=== PATIENT | female | born 1945 | race African-American/Black ===

== ENCOUNTER 2018-09-23 00:06 | Inpatient (IN) | payer OTHER ==
--- NOTE | 2018-09-23 00:43 | PDOC ---
History of Present Illness - General Chief Complaint: Syncope/Near Syncope Stated Complaint: Syncope/Near Syncope Time Seen by Provider: 09/23/18 00:27 History Source: Patient Exam Limitations: No Limitations - History of Present Illness Initial Comments: 09/23/18 00:42 The patient is a 73F with a PMH of HTN, HLD, diabetes, anemia, hypothyroidism, GERD and breast cancer who presents to the ER after having multiple syncopal episodes. The patient states that she was in her normal state of health walking around her house when she "blacked out". WHen she woke up, she walked over to her bed and laid down. She felt a bump on her head and admits to hitting her head on the ground. She denies any neck pain, CP, SOB, numbness, tingling, weakness, nausea, vomiting, and changes in her vision. She admits to a cough x 3 -4 days with fevers and chills. Past History - Past Medical History Allergies/Adverse Reactions: Allergies Allergy/AdvReac Type Severity Reaction Status Date / Time No Known Allergies Allergy Verified 04/23/18 22:43 Home Medications: Ambulatory Orders Ezetimibe/Simvastatin [Vytorin 10-40 mg Tablet] 1 each PO DAILY 04/23/18 Metoprolol Tartrate [Lopressor -] 25 mg PO DAILY 04/23/18 Olmesartan/Hydrochlorothiazide [Olmesartan-Hctz 40-12.5 mg Tab] 1 each PO DAILY 04/23/18 Omeprazole 20 mg PO DAILY 04/23/18 Anemia: Yes Cancer: Yes (left breast, also + CA polyp on colonoscopy (further rx NI)) COPD: No Diabetes: Yes GI Disorders: Yes (GERD, ULCER) HTN: Yes Hypercholesterolemia: Yes - Surgical History Orthopedic Surgery: Yes (RT SHOLDER REPLACEMENT) - Immunization History Td Vaccination: Yes - Suicide/Smoking/Psychosocial Hx Smoking Status: Yes Smoking History: Former smoker Have you smoked in the past 12 months: No Number of Cigarettes Smoked Daily: 0 Hx Alcohol Use: Yes (occasional) Drug/Substance Use Hx: No Hx Substance Use Treatment: No Review of Systems - Review of Systems Able to Perform ROS?: Yes Comments:: 09/23/18 01:25 GENERAL/CONSTITUTIONAL: No fever or chills. No weakness. HEAD, EYES, EARS, NOSE AND THROAT: No change in vision. No ear pain or discharge. No sore throat. CARDIOVASCULAR: No chest pain, palpitations, or lightheadedness. RESPIRATORY: No cough, wheezing, shortness of breath, or hemoptysis. GASTROINTESTINAL: No nausea, vomiting, diarrhea, constipation, or abdominal pain. GENITOURINARY: No dysuria, frequency, hematuria, or change in urination. MUSCULOSKELETAL: Positive for abrasion on head. No joint or muscle swelling or pain. No neck or back pain. SKIN: No rash or lesions. NEUROLOGIC: Positive for LOC. No headache, numbness, tingling, focal weakness, or change in strength/sensation. Is the patient limited Maori proficient: No *Physical Exam - Physical Exam Comments: 09/23/18 01:26 GENERAL: Well developed, well nourished. Awake and alert. No acute distress. HEENT: Normocephalic, atraumatic. Hearing grossly normal. Moist mucous membranes. PERRLA, EOMI. No conjunctival pallor. Sclera are non-icteric. NECK: Supple. Full ROM. No JVD. CARDIOVASCULAR: Regular rate and rhythm. No murmurs, rubs, or gallops. PULMONARY: No evidence of respiratory distress. Lungs clear to auscultation bilaterally. No wheezing, rales or rhonchi. ABDOMINAL: Soft. Non-tender. Non-distended. No rebound or guarding. GENITOURINARY: No CVA tenderness bilaterally. MUSCULOSKELETAL: Normal range of motion at all joints. No bony deformities or tenderness. EXTREMITIES: No cyanosis. No clubbing. No edema. No calf tenderness or swelling. SKIN: Warm and dry. Normal capillary refill. No rashes. No jaundice. NEUROLOGICAL: Alert, awake, appropriate. Cranial nerves 2-12 grossly intact. Normal speech. PSYCHIATRIC: Cooperative. Good eye contact. Appropriate mood and affect. ED Treatment Course - LABORATORY CBC & Chemistry Diagram: 09/23/18 01:55 09/23/18 01:55 - RADIOLOGY Radiology Studies Ordered: Category Date Time Status HEAD CT WITHOUT CONTRAST [CT] Stat CT Scan 09/23/18 00:28 Ordered CHEST X-RAY PORTABLE* [RAD] Stat Radiology 09/23/18 00:28 Ordered Medical Decision Making - Medical Decision Making 09/23/18 01:26 The patient is a 73F with an extensive PMH who presents to the ER after having multiple syncopal episodes. Per EMS, the patient syncopized twice en route but had no changes on their monitor. She currently denies any symptoms but admits to a headache. Ddx is ACS, PE, arrythmia, dissection. Pt has had hx of syncope with extensive cardiac workup which was all unremarkable. She was supposed to have an outpatient stress test which is unclear if she followed up or not. She states that she was told that she syncopized 2/2 a PNA. With her cough and fever /chills, she may have a PNA underlying. Pending CBC, CMP, and CTH with CXR and UA.\\ 09/23/18 04:19 Abx given for mastoiditis seen on CTH. Ceftriaxone given. Dr. Khalil paged for admission. 09/23/18 04:[address] Khalil for admission. She requests for Dr. Resendiz to be consulted. Order placed. *DC/Admit/Observation/Transfer Diagnosis at time of Disposition: Syncope Qualifiers: Syncope type: unspecified Qualified Code(s): R55 - Syncope and collapse - Discharge Dispostion Condition at time of disposition: Guarded Decision to Admit order: Yes - Referrals Referrals: Ruiz Nelson MD [Primary Care Provider] - - Patient Instructions - Post Discharge Activity
[2018-09-23] MEDS ORDERED: SODIUM CHLORIDE 0.9% 1000 ML INFUS.BAG IV ONE (01:19)
[2018-09-23] MEDS ORDERED: ACETAMINOPHEN 1000 MG/100 ML VIAL (NON FORMULARY) IVPB ONE (01:27)
[2018-09-23] MEDS ORDERED: ACETAMINOPHEN INJECTION 100 ML IVPB ONE (01:42)
[2018-09-23] MEDS ORDERED: CEFTRIAXONE 1,000 MG in DEXTROSE 5%-WATER - 50 ML IVPB ONE (01:49)
[2018-09-23 02:15] LABS: BASO % 0.3 % (0-2.0); EOS % 1.3 % (0-4.5); HEMATOCRIT 33.2 % (32.4-45.2); HEMOGLOBIN 11.3 GM/dL (10.7-15.3); LYMPH % 21.9 % (8-40); MCH 27.6 pg (25.7-33.7); MCHC 34.2 g/dl (32.0-36.0); MEAN CELL VOLUME 80.9 fl (80-96); MEAN PLT VOLUME 7.1 fl (7.5-11.1); MONO % 5.8 % (3.8-10.2); NEUT % 70.7 % (42.8-82.8); PLATELET COUNT 319 K/MM3 (134-434); RBC 4.11 M/mm3 (3.60-5.2); RDW 17.1 % (11.6-15.6); WHITE BLOOD COUNT 4.9 K/mm3 (4.0-10.0)
[2018-09-23 02:28] LABS: INR 1.05 (0.83-1.09); PROTHROMBIN TIME (PATIENT) 12.4 SEC (9.7-13.0)
[2018-09-23] MEDS ORDERED: CEFTRIAXONE 1 GM/50 ML BAG ONE (02:39)
[2018-09-23 02:45] LABS: ALK PHOS 108 U/L (45-117); ANION GAP 12 MMOL/L (8-16); BILIRUBIN,TOTAL 0.2 mg/dL (0.2-1); BLOOD UREA NITROGEN 12 mg/dL (7-18); CALCIUM 9.7 mg/dL (8.5-10.1); CHLORIDE 105 mmol/L (98-107); CO2 25 mmol/L (21-32); CREATININE 1.3 mg/dL (0.55-1.3); GLUCOSE,RANDOM 122 mg/dL (74-106); MAGNESIUM 2.1 mg/dL (1.8-2.4); POTASSIUM 3.9 mmol/L (3.5-5.1); SGOT/AST 42 U/L (15-37); SGPT/ALT 30 U/L (13-61); SODIUM 141 mmol/L (136-145); TOT PROT 7.9 g/dl (6.4-8.2)
--- NOTE | 2018-09-23 03:51 | PDOC ---
Attending Attestation - Resident Resident Name: ZakadalAlvin - ED Attending Attestation I have performed the following: I have examined & evaluated the patient, The case was reviewed & discussed with the resident, I agree w/resident's findings & plan - HPI HPI: 09/23/18 03:45 73-year-old female with history of multiple medical problems including hypertension and diabetes, syncope admission earlier this year presents now with syncopal episode. Patient was in her usual state of normal health, has been seen by a GI (Dr. Ann) recently and started on iron pills for anemia, otherwise without obvious infectious or metabolic complaints, was ambulating in her room and next recalls striking her head on the nightstand and being on the floor. No presyncopal syndrome, no chest pain or palpitations or shortness of breath, no subsequent loss of consciousness or headache/vision change/speech change/focal weakness. Presents for evaluation. Patient had normal echo on prior admission, saw Dr. Resendiz in the office a few weeks ago, but never followed up for her planned stress test. - Physicial Exam PE: 09/23/18 03:47 VSS well appearing, small forehead abrasion/ecchymosis no midline spine ttp, FROM s1s2 rrr, ctab abd soft neuro nl, no edema - Medical Decision Making 09/23/18 03:48 73-year-old female with sudden syncope, history of same. On prior admission patient was diagnosed with pneumonia, here without obvious other complaints. Cardiac versus infectious, low suspicion for seizure. CT head shows no acute traumatic injury bilateral mastoiditis EKG within normal limits Labs are within normal limits including troponin Admit for telemetry Heart Score/ECG Review #1 ECG reviewed & interpreted by me at: 00:34 General ECG Interpretation: Sinus Rhythm, Normal Rate (71), Normal Intervals ( qtc 441), No acute ischemic changes (t-wave flattening laterally I/AVL, V4-6) Compared to previous ECG there are: No significant change (04/23/18)
[2018-09-23 04:32] LABS: URINE APPEARANCE CLEAR; URINE BILIRUBIN NEGATIVE (<2.0 mg/dL); URINE COLOR STRAW; URINE GLUCOSE (UA) NEGATIVE (NEGATIVE); URINE KETONE NEGATIVE (NEGATIVE); URINE LEUK ESTERASE NEGATIVE (NEGATIVE); URINE NITRITE NEGATIVE (NEGATIVE); URINE PROTEIN NEGATIVE (NEGATIVE); URINE UROBILINOGEN NEGATIVE mg/dL (0.2-1.0)
--- NOTE | 2018-09-23 09:37 | CON.CARD ---
Cardiology Consult (text) - Consultation Consultation Note: Cardiology Consult Dictated IMP: Syncope Short WI Hx PSVT REC: Tele Echo Orthostatics Will need EP evaluation.
--- NOTE | 2018-09-23 10:36 | CONS ---
DATE OF CONSULTATION: 09/23/2018 REQUESTING PHYSICIAN: Fransisca Khalil MD REASON FOR CONSULTATION: Syncope. HISTORY OF PRESENT ILLNESS: This patient is a 73-year-old female with past medical history of hypertension, hyperlipidemia, diabetes, chronic hypothyroidism, GERD, and breast cancer, who presented to the ER after an episode of syncope. Patient stated that she was in her usual state of health, walking in her house, when she suddenly lost consciousness for several seconds. She denies antecedent chest pain, shortness of breath, palpitations. She then woke up, walked over to her bed and laid down. She noticed a bump on her head, and at that time, decided to come to the emergency room for further evaluation. She was seen and examined in the ER this morning in no acute distress. She denies dizziness or neurological symptoms. No chest pain or shortness of breath. PAST MEDICAL HISTORY: As above. ALLERGIES: None. MEDICATIONS: Omeprazole 20 mg p.o. daily, olmesartan/hydrochlorothiazide 40/12.5 daily, metoprolol tartrate 25 mg p.o. daily, and ezetimibe/simvastatin 10/40 mg daily. FAMILY HISTORY: Noncontributory. SOCIAL HISTORY: A former smoker. No alcohol or illicit drugs. PHYSICAL EXAMINATION: General: She is alert, oriented, in no distress. Vital signs: Afebrile, temperature 97.9, pulse 70, blood pressure 131/70, O2 saturation is 98 on room air. Neck: No bruits. Heart: S1, S2. Regular. No murmurs. Chest: Clear. Abdomen: Soft, nontender. Extremities: No edema. DIAGNOSTIC DATA: ECG showed normal sinus rhythm with short WA interval, non-specific ST changes. CBC was normal. Coagulation profile was normal. Basic metabolic panel was normal including first set of cardiac enzymes. Urinalysis was negative. Head CT showed no acute intracranial pathology. Chest x-ray: No active disease. IMPRESSION: 1. Syncope. 2. Short WA interval. 3. History of paroxysmal supraventricular tachycardia RECOMMENDATIONS: 1. Telemetry. 2. Echocardiogram. 3. Check orthostatics. She will need EP evaluation, the timing of which to be determined based on above diagnostics. Thank you for the consultation. KATHRYN LUNSFORD M.D. [id number]
--- NOTE | 2018-09-23 11:39 | EKG ---
Test Reason : Blood Pressure : / mmHG Vent. Rate : 071 BPM Atrial Rate : 071 BPM P-R Int : 122 ms QRS Dur : 084 ms QT Int : 406 ms P-R-T Axes : 059 009 006 degrees QTc Int : 441 ms NORMAL SINUS RHYTHM NONSPECIFIC T WAVE ABNORMALITY ABNORMAL ECG WHEN COMPARED WITH ECG OF 23-APR-2018 23:14, NONSPECIFIC T WAVE ABNORMALITY, IMPROVED IN INFERIOR LEADS Confirmed by GIULIA OWEN, ZAIRA ([id number]) on 09/23/2018 11:38:54 AM Referred By: Confirmed By:ZAIRA PLATT MD
--- NOTE | 2018-09-23 12:13 | ECHO ---
Name: SUZY DANIELS Exam:Adult Echocardiogram Study Date: 09/23/2018 10:15 AM Age: 73 yrs Reason For Study: SYNCOPE Height: 66 in Weight: 185 lb BSA: 1.9 m2 MMode/2D Measurements & Calculations IVSd: 1.0 cm Ao root diam: 2.2 cm LVIDd: 3.8 cm ACS: 1.9 cm LVIDs: 3.1 cm LVPWd: 1.0 cm EDV(Teich): 61.2 ml LVOT diam: 2.0 cm ESV(Teich): 36.5 ml RV S Patricio: 15.2 cm/sec Doppler Measurements & Calculations Med Peak E' Patricio: 9.6 cm/sec Lat Peak E' Patricio: 12.1 cm/sec Left Ventricle The left ventricular size, thickness and function are normal. Right Ventricle The right ventricle is normal in size and function. Atria Normal left and right atrial size and function. Mitral Valve The mitral valve is normal in structure and function. There is no mitral valve stenosis. There is tra ce mitral regurgitation. Tricuspid Valve The tricuspid valve is normal in structure and function. There is trace tricuspid regurgitation. Aortic Valve The aortic valve is trileaflet. No hemodynamically significant valvular aortic stenosis. No aortic regurgitation is present. Pulmonic Valve The pulmonic valve is not well seen, but is grossly normal. There is no pulmonic valvular stenosis. T here is no pulmonic valvular regurgitation. Great Vessels The aortic root is normal size. Pericardium/Pleura There is no pericardial effusion. Interpretation Summary The left ventricular size, thickness and function are normal The right ventricle is normal in size and function. There is trace mitral regurgitation. There is no pericardial effusion. MD Bae *Martín 09/23/2018 12:12 PM
[2018-09-23] MEDS ORDERED: METOPROLOL TARTRATE 25 MG TABLET (FP) ONE (13:17)
[2018-09-23] MEDS: METOPROLOL TARTRATE 25 MG TABLET (FP) PO SCH (13:27)
[2018-09-23] MEDS ORDERED: ACETAMINOPHEN 325 MG TABLET (FP) ONE (14:09)
[2018-09-23] MEDS: DEXTROSE 5%-0.45% SALINE 1,000 ML IV SCH (14:13)
[2018-09-23] MEDS ORDERED: ACETAMINOPHEN 325 MG TABLET (FP) PO ONE (14:13)
--- NOTE | 2018-09-23 15:44 | HP ---
Admitting History and Physical - Past Medical History Cardiovascular: Yes: HTN, Hyperlipdemia Gastrointestinal: Yes: GERD Heme/Onc: Yes: Cancer (Breast cancer), Other Endocrine: Yes: Diabetes Mellitus, Hypothyroidism - Smoking History Smoking history: Former smoker Have you smoked in the past 12 months: No Aproximately how many cigarettes per day: 0 - Alcohol/Substance Use Hx Alcohol Use: Yes (occasional) Home Medications - Allergies Allergies/Adverse Reactions: Allergies Allergy/AdvReac Type Severity Reaction Status Date / Time No Known Allergies Allergy Verified 04/23/18 22:43 - Home Medications Home Medications: Ambulatory Orders Ezetimibe/Simvastatin [Vytorin 10-40 mg Tablet] 1 each PO DAILY 04/23/18 Metoprolol Tartrate [Lopressor -] 25 mg PO DAILY 04/23/18 Olmesartan/Hydrochlorothiazide [Olmesartan-Hctz 40-12.5 mg Tab] 1 each PO DAILY 04/23/18 Omeprazole 20 mg PO DAILY 04/23/18 Physical Examination Vital Signs: Vital Signs Temperature 97.7 F 09/23/18 13:34 Pulse Rate 74 09/23/18 13:34 Respiratory Rate 18 09/23/18 13:34 Blood Pressure 162/79 09/23/18 13:34 O2 Sat by Pulse Oximetry (%) 100 09/23/18 13:34 Labs: CBC, BMP 09/23/18 01:55 09/23/18 01:55
--- NOTE | 2018-09-23 18:23 | CONSULT ---
Consult - text type - Consultation Consultation Note: NEUROLOGY CONSULTATION is greatly appreciated: This 73 yo RH div woman lives with her son. PMH sig for HTN, DM, Chol, hypothyroidism and breast cancer. Maintained on valsartan, metoprolol, zetia, lipitor, protonix and HCTZ. Admitted here 3 mos ago with sudden syncope without warning. Etiology undetermined. Over the last month, patient has had recurrent brief episodes of sharp left sided headaches with brief lightheadedness. This AM, ambulating in her bedroom, she again fainted without prodromal symptoms. She again fell forward striking her forehead on her dresser. Awoke on the floor without diaphoresis or incontinence. Rapidly oriented. While awaiting EMS, patient had a few, recurrent, episodes of lightheadedness, feeling as if she "might faint again." All BP's reported are normal. Since the fall the patient has had a dull, persistent headache without nausea, dizziness or associated symptoms. CT of head (reviewed): Mild atrophy. No traumatic changes. Carotid duplex doppler- Mild, scattered, plaque. No significant hemodynamic changes. No signs of dissection. WANG: No bruits. Cor reg. NEURO: MS/speech: Normal CN II-XII: normal without nystagmus Motor: No drift. Min sustention tremor and rest tremor left pinky. Normal strength and NATHALY's. Normal reflexes. Toes downgoing. Coord: No FTN dystaxia Sensory: Normal Gait: Normal IMP: Essentially normal neurological exam Syncope without prodrome- Lopez-Skelton attack suggesting cardiac arrhythmia Head trauma with concussion. Suggest: Cont telemetry/Halter. May need terminal computer operator monitoring Check orthostatic BP's. Consider changing from metoprolol. Tylenol 1 gm q 6 hrs PRN headache. Neuro F/U, EEG as out patient. Thank you very much, Redman MD
[2018-09-23 18:39] VITALS: BMI 286.8
[2018-09-23] MEDS ORDERED: FLU VACCINE QUAD 60 MCG/0.5 ML (MDV 18-19) IM ONE (18:45)
[2018-09-23] MEDS: ACETAMINOPHEN 500 MG TABLET (FP) PO PRN (18:52)
[2018-09-23] MEDS: HEPARIN NA (PORCINE) 5,000 UNITS/ML 1ML VIAL SQ SCH (20:59)
[2018-09-23] MEDS: EZETIMIBE 10 MG TABLET (FP) PO SCH (20:59)
[2018-09-23] MEDS: ATORVASTATIN CA 20 MG TABLET (FP) PO SCH (20:59)
[2018-09-24 08:10] LABS: BASO % 0.2 % (0-2.0); EOS % 1.9 % (0-4.5); HEMATOCRIT 31.4 % (32.4-45.2); LYMPH % 27.8 % (8-40); MCH 26.2 pg (25.7-33.7); MCHC 31.8 g/dl (32.0-36.0); MEAN CELL VOLUME 82.2 fl (80-96); MEAN PLT VOLUME 7.2 fl (7.5-11.1); MONO % 10.2 % (3.8-10.2); NEUT % 59.9 % (42.8-82.8); PLATELET COUNT 248 K/MM3 (134-434); RBC 3.82 M/mm3 (3.60-5.2); RDW 17.5 % (11.6-15.6); WHITE BLOOD COUNT 3.8 K/mm3 (4.0-10.0)
[2018-09-24 09:04] LABS: ALBUMIN 3.6 g/dl (3.4-5.0); ALK PHOS 81 U/L (45-117); ANION GAP 10 MMOL/L (8-16); BILIRUBIN,TOTAL 0.6 mg/dL (0.2-1); BLOOD UREA NITROGEN 7 mg/dL (7-18); CALCIUM 9.8 mg/dL (8.5-10.1); CHLORIDE 106 mmol/L (98-107); CO2 27 mmol/L (21-32); CREATININE 0.8 mg/dL (0.55-1.3); GLUCOSE,RANDOM 120 mg/dL (74-106); SGOT/AST 32 U/L (15-37); SGPT/ALT 26 U/L (13-61); SODIUM 144 mmol/L (136-145); TOT PROT 6.9 g/dl (6.4-8.2)
[2018-09-24] MEDS ORDERED: DEXTROSE 5%-WATER - 50 ML IVPB ONE (09:19)
[2018-09-24] MEDS ORDERED: cefTRIAXone SODIUM 1 GM VIAL ONE (09:19)
--- NOTE | 2018-09-24 09:42 | PN ---
Progress Note (short form) - Note Progress Note: Subjective: ID: 73-year-old female with hypertension, diabetes, hyperlipidemia, breast cancer status post chemo and radiation, CVA 1991, short MT interval with palpitations and negative EP study in May 2012 at [facility] admitted with syncope without prodromal symptoms- ruled out for ACS, telemetry without evidence of significant pause or AV block- awaiting EP consultation. --No acute overnight events Objective: Vital Signs - 24 hr 09/23/18 09/23/18 09/23/18 13:34 18:00 18:45 Temperature 97.7 F 98 F Pulse Rate 75 Pulse Rate [ 74 Right Radial] Pulse Rate [ Sitting] Pulse Rate [ Standing] Pulse Rate [ Supine] Respiratory 18 18 18 Rate Blood Pressure 167/78 Blood Pressure 162/79 [Left Arm] Blood Pressure [Sitting] Blood Pressure [Standing] Blood Pressure [Supine] O2 Sat by Pulse 100 100 Oximetry (%) 09/23/18 09/24/18 09/24/18 22:00 01:49 06:15 Temperature 97.4 F L Pulse Rate 61 Pulse Rate [ Right Radial] Pulse Rate [ 66 Sitting] Pulse Rate [ 74 Standing] Pulse Rate [ 69 Supine] Respiratory 18 18 Rate Blood Pressure 150/87 Blood Pressure [Left Arm] Blood Pressure 148/83 [Sitting] Blood Pressure 146/88 [Standing] Blood Pressure 140/82 [Supine] O2 Sat by Pulse 97 Oximetry (%) Gen: well appearing female sitting upright in NAD HEENT: NC/AT. OP Clear, MMM Cardiac: S1/S2 no murmurs Pulm: clear breath sounds bilaterally. No rales. Ext: WWP. No edema. Labs: reviewed. A/P: 73-year-old female with hypertension, diabetes, hyperlipidemia, breast cancer status post chemo and radiation, CVA 1991, short MT interval with palpitations and negative EP study in May 2012 at [facility] admitted with syncope without prodromal symptoms- ruled out for ACS, telemetry without evidence of significant pause or AV block- awaiting EP consultation. #Syncope Etiology: concern for cardiac etiology given lack of prodrome Workup: --CT Head negative --ECG NSR, short MT nonspecific T wave changes --troponin negative X4 --telemetry without evidence of high degree block or significant pause --echocardiogram in 08/2018 normal LV function, no significant valvular disfunction --carotid without hemodynamically significant stenosis --consider pharmacologic nuclear stress --orthostatics negative Treatment: --continue to monitor on telemetry --will need EP consult #HL; continue atorvastatin/zetia #HTN; continue HCTZ 12.5mg, valsartan 325mg, metoprolol. IF BP continues to be elevated >140 on current regimen recommend increase HCTZ to 25mg Gaetano Blake MD .
[2018-09-24] MEDS: HEPARIN NA (PORCINE) 5,000 UNITS/ML 1ML VIAL SQ SCH ×2 (09:58→21:37)
[2018-09-24] MEDS: CEFTRIAXONE 1 GM in DEXTROSE 5%-WATER - 50 ML IVPB SCH (09:58)
[2018-09-24] MEDS: ACETAMINOPHEN 500 MG TABLET (FP) PO PRN ×3 (09:59→21:38)
[2018-09-24] MEDS: HYDROCHLOROTHIAZIDE 12.5 MG CAPSULE (FP) PO SCH (09:59)
[2018-09-24] MEDS: PANTOPRAZOLE 20 MG TABLET (FP) PO SCH (09:59)
[2018-09-24] MEDS: METOPROLOL TARTRATE 25 MG TABLET (FP) PO SCH (09:59)
[2018-09-24] MEDS: VALSARTAN 160 MG TABLET (UD) PO SCH (10:00)
[2018-09-24] MEDS: DEXTROSE 5%-0.45% SALINE 1,000 ML IV SCH (17:01)
--- NOTE | 2018-09-24 21:28 | PN ---
Progress Note, Physician - Current Medication List Current Medications: Active Medications Acetaminophen (Tylenol -) 1,000 mg PO Q6H PRN PRN Reason: HEADACHE Last Admin: 09/24/18 15:35 Dose: 1,000 mg Atorvastatin Calcium (Lipitor -) 20 mg PO HS [facility] Last Admin: 09/23/18 20:59 Dose: 20 mg Ezetimibe (Zetia -) 10 mg PO HS [facility] Last Admin: 09/23/18 20:59 Dose: 10 mg Heparin Sodium (Porcine) (Heparin -) 5,000 unit SQ BID [facility] Last Admin: 09/24/18 09:58 Dose: 5,000 unit Hydrochlorothiazide (Hctz -) 12.5 mg PO DAILY [facility] Last Admin: 09/24/18 09:59 Dose: 12.5 mg Ceftriaxone Sodium 1 gm/ (Dextrose) 50 mls @ 100 mls/hr IVPB DAILY [facility]; Protocol Last Admin: 09/24/18 09:58 Dose: 100 mls/hr Dextrose/Sodium Chloride (D5-1/2ns -) 1,000 mls @ 75 mls/hr IV ASDIR RUBEN Last Admin: 09/24/18 17:01 Dose: Not Given Metoprolol Tartrate (Lopressor -) 25 mg PO DAILY [facility] Last Admin: 09/24/18 09:59 Dose: 25 mg Pantoprazole Sodium (Protonix -) 20 mg PO DAILY [facility] Last Admin: 09/24/18 09:59 Dose: 20 mg Valsartan (Diovan -) 320 mg PO DAILY [facility] Last Admin: 09/24/18 10:00 Dose: 320 mg - Objective Vital Signs: Vital Signs Temperature 97.8 F 09/24/18 20:35 Pulse Rate 62 09/24/18 20:35 Respiratory Rate 18 09/24/18 20:35 Blood Pressure 149/83 09/24/18 20:35 O2 Sat by Pulse Oximetry (%) 99 09/24/18 20:35 Labs: CBC, BMP 09/24/18 06:50 09/24/18 06:50 INR, PTT INR 1.05 (0.83-1.09) 09/23/18 01:55
[2018-09-24] MEDS: EZETIMIBE 10 MG TABLET (FP) PO SCH (21:37)
[2018-09-24] MEDS: ATORVASTATIN CA 20 MG TABLET (FP) PO SCH (21:37)
[2018-09-25] MEDS ORDERED: DEXTROSE 5%-WATER - 50 ML IVPB ONE (09:49)
[2018-09-25] MEDS ORDERED: cefTRIAXone SODIUM 1 GM VIAL ONE (09:49)
[2018-09-25] MEDS: METOPROLOL TARTRATE 25 MG TABLET (FP) PO SCH (09:52)
[2018-09-25] MEDS: VALSARTAN 160 MG TABLET (UD) PO SCH (09:52)
[2018-09-25] MEDS: HEPARIN NA (PORCINE) 5,000 UNITS/ML 1ML VIAL SQ SCH ×2 (09:52→21:08)
[2018-09-25] MEDS: PANTOPRAZOLE 20 MG TABLET (FP) PO SCH (09:52)
[2018-09-25] MEDS: HYDROCHLOROTHIAZIDE 12.5 MG CAPSULE (FP) PO SCH (09:52)
[2018-09-25] MEDS: CEFTRIAXONE 1 GM in DEXTROSE 5%-WATER - 50 ML IVPB SCH (09:53)
--- NOTE | 2018-09-25 11:17 | PN ---
Progress Note (short form) - Note Progress Note: Subjective: ID: 73-year-old female with hypertension, diabetes, hyperlipidemia, breast cancer status post chemo and radiation, CVA 1991, short OH interval with palpitations and negative EP study in May 2012 at [facility] admitted with syncope without prodromal symptoms- ruled out for ACS, telemetry without evidence of significant pause or AV block- awaiting EP consultation. --No acute overnight events Objective: Vital Signs 09/25/18 05:12 Temperature 98 F Pulse Rate 58 L Respiratory 18 Rate Blood Pressure 120/68 Gen: well appearing female sitting upright in NAD HEENT: NC/AT. OP Clear, MMM Cardiac: S1/S2 no murmurs Pulm: clear breath sounds bilaterally. No rales. Ext: WWP. No edema. Labs: reviewed. A/P: 73-year-old female with hypertension, diabetes, hyperlipidemia, breast cancer status post chemo and radiation, CVA 1991, short OH interval with palpitations and negative EP study in May 2012 at [facility] admitted with syncope without prodromal symptoms- ruled out for ACS, telemetry without evidence of significant pause or AV block- awaiting EP consultation. No significant change from prior recommendations of 09/24. #Syncope Etiology: concern for cardiac etiology given lack of prodrome Workup: --CT Head negative --ECG NSR, short OH nonspecific T wave changes --troponin negative X4 --telemetry without evidence of high degree block or significant pause --echocardiogram in 08/2018 normal LV function, no significant valvular disfunction --carotid without hemodynamically significant stenosis --consider pharmacologic nuclear stress --orthostatics negative Treatment: --continue to monitor on telemetry --will need EP consult #HL; continue atorvastatin/zetia #HTN; continue HCTZ 12.5mg, valsartan 325mg, metoprolol. Gaetano Blake MD .
[2018-09-25] MEDS: ACETAMINOPHEN 500 MG TABLET (FP) PO PRN ×2 (14:53→21:07)
--- NOTE | 2018-09-25 17:05 | PN ---
Progress Note, Physician History of Present Illness: No new complaints - Current Medication List Current Medications: Active Medications Acetaminophen (Tylenol -) 1,000 mg PO Q6H PRN PRN Reason: HEADACHE Last Admin: 09/25/18 14:53 Dose: 1,000 mg Atorvastatin Calcium (Lipitor -) 20 mg PO HS [facility] Last Admin: 09/24/18 21:37 Dose: 20 mg Ezetimibe (Zetia -) 10 mg PO HS [facility] Last Admin: 09/24/18 21:37 Dose: 10 mg Heparin Sodium (Porcine) (Heparin -) 5,000 unit SQ BID [facility] Last Admin: 09/25/18 09:52 Dose: 5,000 unit Hydrochlorothiazide (Hctz -) 12.5 mg PO DAILY [facility] Last Admin: 09/25/18 09:52 Dose: 12.5 mg Ceftriaxone Sodium 1 gm/ (Dextrose) 50 mls @ 100 mls/hr IVPB DAILY [facility]; Protocol Last Admin: 09/25/18 09:53 Dose: 100 mls/hr Dextrose/Sodium Chloride (D5-1/2ns -) 1,000 mls @ 75 mls/hr IV ASDIR [facility] Last Admin: 09/24/18 17:01 Dose: Not Given Metoprolol Tartrate (Lopressor -) 25 mg PO DAILY [facility] Last Admin: 09/25/18 09:52 Dose: 25 mg Pantoprazole Sodium (Protonix -) 20 mg PO DAILY [facility] Last Admin: 09/25/18 09:52 Dose: 20 mg Valsartan (Diovan -) 320 mg PO DAILY [facility] Last Admin: 09/25/18 09:52 Dose: 320 mg - Objective Vital Signs: Vital Signs Temperature 97.8 F 09/25/18 14:00 Pulse Rate 65 09/25/18 14:00 Respiratory Rate 18 09/25/18 11:20 Blood Pressure 141/74 09/25/18 14:00 O2 Sat by Pulse Oximetry (%) 99 09/25/18 09:00 Neck: Yes: WNL, Supple Cardiovascular: Yes: WNL, Regular Rate and Rhythm Respiratory: Yes: WNL, Regular, CTA Bilaterally Gastrointestinal: Yes: WNL, Normal Bowel Sounds, Soft Labs: CBC, BMP 09/24/18 06:50 09/24/18 06:50 INR, PTT INR 1.05 (0.83-1.09) 09/23/18 01:55 Problem List - Problems (1) Syncope Assessment/Plan: Ct scan head was normal Carotid doppler did not show any significant stenosis Further w/u as per cardio ?stress test Code(s): R55 - SYNCOPE AND COLLAPSE Qualifiers: Syncope type: unspecified Qualified Code(s): R55 - Syncope and collapse (2) Diabetes Code(s): E11.9 - TYPE 2 DIABETES MELLITUS WITHOUT COMPLICATIONS (3) HLD (hyperlipidemia) Assessment/Plan: Cont lipitor/zetia Code(s): E78.5 - HYPERLIPIDEMIA, UNSPECIFIED (4) HTN (hypertension) Assessment/Plan: Cont Hctz/metoprolol/valsartan BP stable Code(s): I10 - ESSENTIAL (PRIMARY) HYPERTENSION (5) Breast cancer Code(s): C50.919 - MALIGNANT NEOPLASM OF UNSP SITE OF UNSPECIFIED FEMALE BREAST
[2018-09-25] MEDS: EZETIMIBE 10 MG TABLET (FP) PO SCH (21:08)
[2018-09-25] MEDS: ATORVASTATIN CA 20 MG TABLET (FP) PO SCH (21:09)
[2018-09-26 06:10] VITALS: TEMP 97.8
[2018-09-26 06:59] LABS: BASO % 0.6 % (0-2.0); EOS % 3.6 % (0-4.5); HEMATOCRIT 33.1 % (32.4-45.2); HEMOGLOBIN 10.5 GM/dL (10.7-15.3); LYMPH % 30.7 % (8-40); MCH 26.3 pg (25.7-33.7); MCHC 31.6 g/dl (32.0-36.0); MEAN CELL VOLUME 83.3 fl (80-96); MEAN PLT VOLUME 7.6 fl (7.5-11.1); MONO % 8.7 % (3.8-10.2); NEUT % 56.4 % (42.8-82.8); PLATELET COUNT 237 K/MM3 (134-434); RBC 3.97 M/mm3 (3.60-5.2); RDW 16.7 % (11.6-15.6)
[2018-09-26 07:53] LABS: ALBUMIN 3.4 g/dl (3.4-5.0); ALK PHOS 91 U/L (45-117); ANION GAP 7 MMOL/L (8-16); BILIRUBIN,TOTAL 0.4 mg/dL (0.2-1); BLOOD UREA NITROGEN 7 mg/dL (7-18); CALCIUM 9.7 mg/dL (8.5-10.1); CHLORIDE 107 mmol/L (98-107); CO2 27 mmol/L (21-32); CREATININE 0.7 mg/dL (0.55-1.3); GLUCOSE,RANDOM 134 mg/dL (74-106); POTASSIUM 3.6 mmol/L (3.5-5.1); SGOT/AST 46 U/L (15-37); SGPT/ALT 34 U/L (13-61); SODIUM 141 mmol/L (136-145); TOT PROT 6.8 g/dl (6.4-8.2)
--- NOTE | 2018-09-26 08:46 | PN ---
Progress Note, Physician Chief Complaint: feeling well TELE: NSR - Current Medication List Current Medications: Active Medications Acetaminophen (Tylenol -) 1,000 mg PO Q6H PRN PRN Reason: HEADACHE Last Admin: 09/25/18 21:07 Dose: 1,000 mg Atorvastatin Calcium (Lipitor -) 20 mg PO HS [facility] Last Admin: 09/25/18 21:09 Dose: 20 mg Ezetimibe (Zetia -) 10 mg PO HS [facility] Last Admin: 09/25/18 21:08 Dose: 10 mg Heparin Sodium (Porcine) (Heparin -) 5,000 unit SQ BID [facility] Last Admin: 09/25/18 21:08 Dose: 5,000 unit Hydrochlorothiazide (Hctz -) 12.5 mg PO DAILY [facility] Last Admin: 09/25/18 09:52 Dose: 12.5 mg Metoprolol Tartrate (Lopressor -) 25 mg PO DAILY [facility] Last Admin: 09/25/18 09:52 Dose: 25 mg Pantoprazole Sodium (Protonix -) 20 mg PO DAILY [facility] Last Admin: 09/25/18 09:52 Dose: 20 mg Valsartan (Diovan -) 320 mg PO DAILY [facility] Last Admin: 09/25/18 09:52 Dose: 320 mg - Objective Vital Signs: Vital Signs Temperature 97.8 F 09/26/18 06:09 Pulse Rate 62 09/26/18 06:09 Respiratory Rate 18 09/26/18 06:09 Blood Pressure 126/68 09/26/18 06:09 O2 Sat by Pulse Oximetry (%) 99 09/25/18 21:00 Constitutional: Yes: No Distress Cardiovascular: Yes: Regular Rate and Rhythm Respiratory: Yes: CTA Bilaterally Gastrointestinal: Yes: Soft Edema: No Neurological: Yes: Alert, Oriented Labs: CBC, BMP 09/26/18 05:30 09/26/18 05:30 INR, PTT INR 1.05 (0.83-1.09) 09/23/18 01:55 - ....Imaging EKG: Image Reviewed Assessment/Plan IMP: Syncope without prodrome Short [place] Hx PSVT REC: For transfer to [facility] EP service for EP eval, likely EPS.
[2018-09-26] MEDS: PANTOPRAZOLE 20 MG TABLET (FP) PO SCH (09:37)
[2018-09-26] MEDS: VALSARTAN 160 MG TABLET (UD) PO SCH (09:39)
[2018-09-26] MEDS: METOPROLOL TARTRATE 25 MG TABLET (FP) PO SCH (11:04)
[2018-09-26] MEDS: HYDROCHLOROTHIAZIDE 12.5 MG CAPSULE (FP) PO SCH (11:04)
[2018-09-26] MEDS: HEPARIN NA (PORCINE) 5,000 UNITS/ML 1ML VIAL SQ SCH (11:04)
[2018-09-26 12:25] VITALS: BP 119/42; PULSE 66
== END 2018-09-26 12:04 | disposition short-term general hospital (02) | DRG 312 ==
LOC: JER 00:06 → JERBED 05:13 → J4W 15:51
PROVIDERS: ADMIT Internal Medicine; ATTEND Internal Medicine
DX: R55 Syncope and collapse (principal); I10 Essential (primary) hypertension; E78.5 Hyperlipidemia, unspecified; E11.9 Type 2 diabetes mellitus without complications; D64.9 Anemia, unspecified; E03.9 Hypothyroidism, unspecified; K21.9 Gastro-esophageal reflux disease without esophagitis; S00.81XA Abrasion of other part of head, initial encounter; W18.30XA Fall on same level, unspecified, initial encounter; Y92.098 Other place in other non-institutional residence as the place of occurrence of the external cause; Z96.611 Presence of right artificial shoulder joint; Z85.3 Personal history of malignant neoplasm of breast; Z87.891 Personal history of nicotine dependence
CPT/HCPCS: 36415; 70450-TC; 71045-TC-FY; 80053; 81003; 82550; 83735; 84484; 85025; 85610; 87086; 90688; 93005; 93010; 93306-TC; 93880-TC; 99283-25; G0008; J0131; J1644; J7030